=== PATIENT | female | born 1945 | race Caucasian/White ===

== ENCOUNTER 2017-12-30 11:14 | Emergency (ER) | payer OTHER ==
[~2017-12-30] VITALS: Ht 162.6 cm; Wt 92.6 kg
[~2017-12-30 11:14] MED LIST: PREDNISONE20 MG PO
[2017-12-30 11:53] LABS: HEMATOCRIT 33.9 % (36.0-46.0); HEMOGLOBIN 11.8 G/DL (11.9-15.5); MCH 31.4 PG (29.0-34.0); MCHC 34.8 G/DL (30.0-36.0); MCV 90.2 FL (83-99); PLATELET COUNT 178 K/uL (156-360); RBC DIS.WIDTH-CV 13.7 % (11.8-14.6); RBC DIS.WIDTH-SD 44.5 % (39-53); RED BLOOD COUNT 3.76 M/uL (3.80-5.20); WHITE BLOOD COUNT 3.4 K/uL (4.1-10.2)
[2017-12-30 12:06] LABS: CHLORIDE 106 mEq/L (99-109); POTASSIUM 3.6 mEq/L (3.7-5.4); SODIUM 144 mEq/L (136-147)
[2017-12-30 12:08] LABS: GLUCOSE 121 mg/dL (70-99)
[2017-12-30 12:12] LABS: CREATININE 0.9 mg/dL (0.6-1.3); GFR ESTIMATE (CALCULATED) > 59 mL/min/; UREA NITROGEN (BUN) 15 mg/dL (9-23)
[2017-12-30 12:14] LABS: TROP-I INTERPRETATION NEGATIVE; TROPONIN-I < 0.01 ng/mL (0.0-0.30)
[2017-12-30 13:29] LABS: D-DIMER ELISA < 150.00 ng/mLDDU (<230)
[2017-12-30] MEDS ORDERED: ZOFRAN ODT4 MG PO (13:51)
[2017-12-30] MEDS ORDERED: PROVENTIL,2.5 MG/3 M IH (13:51)
[2017-12-30 14:15] VITALS: BP 143/63
== END 2017-12-30 14:28 | disposition home or self-care (01) ==
LOC: EME 11:14
PROVIDERS: Physician Assistant
DX: J20.9 Acute bronchitis, unspecified (principal); Z88.5 Allergy status to narcotic agent
CPT/HCPCS: 71046; 80048; 84484; 85027; 85379; 93005; 94640; 99281; 99285; J2930; J7040